=== PATIENT | female | born 1955 | race Caucasian/White ===

== ENCOUNTER → 2021-05-10 | Outpatient (CLI) | payer OTHER ==
[~2021-05-10] MED LIST: ASPIR 8181 MG PO; CATAPRES 0.1MG0.1 MG PO; DULERA 200 MCG8.8 GM INH; FENOFIBRATE200 MG PO; HYDROCHLOROTHIA25 MG PO; HYDROCODON-ACE1 EAC6 PO; IMDUR ER TAB 3030 MG PO; IPRAT-ALBUT 0.5-3 ML INH; LOSARTAN POTAS100 MG PO; MONTELUKAST SOD10 MG PO; NICOTINE PATCH1 EAC5 TD; NITROSTAT0.4 MG SL; NORVASC 5 MG TAB5 MG PO; PLAVIX 75 MG TA75 MG PO; PRAVACHOL40 MG PO; PRILOSEC OTC20 MG PO; SPIRIVA18 MCG INH; TUDORZA PRESS400 MCG INH; VENTOLIN/PROVE0.5 ML INH; ZYRTEC10 MG PO
== END ==
LOC: HEART 5 09:26
DX: J44.9 Chronic obstructive pulmonary disease, unspecified (principal)
CPT/HCPCS: 94060; 94729